=== PATIENT | male | born 1955 | race African-American/Black ===

== ENCOUNTER 2021-12-26 00:18 | Emergency (ER) | payer MEDICAID, OTHER | END 2021-12-26 02:31 | disposition home or self-care (01) | LOC: ERS 00:18 | DX: Z46.59 Encounter for fitting and adjustment of other gastrointestinal appliance and device (principal); I10 Essential (primary) hypertension; Z86.73 Personal history of transient ischemic attack (TIA), and cerebral infarction without residual deficits | CPT/HCPCS: 43762 ==

== ENCOUNTER 2022-10-03 02:01 | Emergency (ER) | payer OTHER ==
[2022-10-03] MEDS ORDERED: GASTROGRAFIN 30 ML BOT ONE (10:49)
== END 2022-10-03 05:18 ==
LOC: ERS 02:01
DX: T85.528A Displacement of other gastrointestinal prosthetic devices, implants and grafts, initial encounter (principal)
CPT/HCPCS: 43762; 74018; Q9963

== ENCOUNTER 2022-10-04 10:06 | Emergency (ER) | payer OTHER ==
[~2022-10-04 10:06] MED LIST: GASTROGRAFIN 30 ML BOT ONE
== END 2022-10-04 13:04 ==
LOC: ERS 10:06
DX: K94.23 Gastrostomy malfunction (principal); I10 Essential (primary) hypertension
CPT/HCPCS: 74018; Q9963

== ENCOUNTER 2025-04-24 08:45 | Emergency (ER) | payer MEDICARE, MEDICAID ==
[2025-04-24] MEDS ORDERED: Ondansetron PF 4 MG/2 ML Vial ONE (09:01)
[2025-04-24] MEDS ORDERED: Pantoprazole 40 MG VIAL ONE (10:02)
[2025-04-24 10:17] LABS: Bacteria/HPF 4+ HPF (None Seen); CAUTI Indications for Culture Alt mental st,lethar; Glucose, Urine (Dipstick) Normal (Negative); Leukocyte Negative Leu/uL (Negative); Protein, Urine (Dipstick) Negative (Neg-Trace); RBC/HPF 0-3 HPF (0-3); Specific Gravity, Urine 1.020 (1.002-1.036); WBC/HPF 0-3 HPF (0-3)
[2025-04-24 10:25] LABS: Urine Culture Reflex No No
[2025-04-24 12:19] LABS: ALT (SGPT) 27 U/L (Less than 45); AST (SGOT) 51 U/L (11-34); Albumin 2.3 g/dL (3.1-4.5); Alkaline Phosphatase 91 U/L (40-110); Anion Gap 11 mmol/L (10-20); BUN (Urea Nitrogen) 13 mg/dL (8.4-25.7); Bilirubin, Total 1.1 mg/dL (0.3-1.2); Calc. Creatinine Clearance 0 mL/min (70-130); Calcium 8.2 mg/dL (7.8-10.44); Carbon Dioxide 24 mmol/L (23-31); Chloride 109 mmol/L (98-107); Globulin 4.0 g/dL (2.4-3.5); Glucose 105 mg/dL (80-115); Lipase 29 U/L (8-78); Potassium 4.7 mmol/L (3.5-5.1); Sodium 139 mmol/L (136-145)
[2025-04-24] MEDS ORDERED: Iopamidol-370 76% 500 ML MDV (1 ML CHARGE) ONE (12:47)
== END 2025-04-24 16:04 | disposition home or self-care (01) ==
LOC: ERS 08:45
DX: K29.70 Gastritis, unspecified, without bleeding (principal); I10 Essential (primary) hypertension; Z86.73 Personal history of transient ischemic attack (TIA), and cerebral infarction without residual deficits; Z79.899 Other long term (current) drug therapy; Z86.16 Personal history of COVID-19
CPT/HCPCS: 71045; 74018; 74019; 74177; 80053; 81001; 83690; 93005; 96361; 96365; 96375; 99285; J2405; J2470; Q9967